=== PATIENT | male | born 1960 | race Caucasian/White ===

== ENCOUNTER 2018-02-28 09:36 | Inpatient (IN) | payer OTHER ==
[2018-02-28] MEDS ORDERED: Iopamidol 370 76% 50 ML VIAL FS ONE (09:41)
[2018-02-28] MEDS ORDERED: ISOVUE-370 76%-LOCM 1 ML ONE (09:41)
[2018-02-28] MEDS ORDERED: Morphine 10 MG/ML VIAL ONE (09:55)
[2018-02-28] MEDS ORDERED: Ondansetron ODT 8 MG TAB ONE (09:56)
[2018-02-28 10:13] LABS: #Eosinphils 0.2 thou/uL (0.0-0.7); #Lymphocytes 1.7 thou/uL (1.20-3.40); #Monocytes 0.7 thou/uL (0.11-0.59); #Neutrophils 7.4 thou/uL (1.40-6.50); %Basophils 0.3 % (0.0-1.0); %Eosinophils 1.6 % (0.0-10.0); %Lymphocytes 16.9 % (21.0-51.0); %Monocytes 7.1 % (0.0-10.0); %Neutrophils 74.1 % (42.0-75.0); Hemoglobin 17.2 g/dL (14.0-18.0); Mean Corpuscular HGB CONC 33.2 g/dL (32.0-36.0); Mean Corpuscular Hemoglobin 29.4 pg (27.0-31.0); Mean Corpuscular Volume 88.5 fL (78.0-98.0); Mean Platelet Volume 7.3 fL (7.4-10.4); Platelet Count 245 thou/uL (130-400); RBC Distribution Width 11.6 % (11.5-14.5); Red Blood Cell (RBC) Count 5.84 mill/uL (4.70-6.10)
[2018-02-28 10:41] LABS: ALT (SGPT) 24 U/L (8-55); AST (SGOT) 23 U/L (5-34); Albumin 4.4 g/dL (3.5-5.0); Alkaline Phosphatase 58 U/L (40-150); Anion Gap 16 mmol/L (10-20); BUN (Urea Nitrogen) 17 mg/dL (8.4-25.7); Bilirubin, Total 0.7 mg/dL (0.2-1.2); Calc. Creatinine Clearance 0 mL/min (70-130); Calcium 9.4 mg/dL (7.8-10.44); Carbon Dioxide 22 mmol/L (22-29); Chloride 102 mmol/L (98-107); Estimated GFR-MDRD 61; Globulin 3.3 g/dL (2.4-3.5); Glucose 184 mg/dL (70-105); Lipase 23 U/L (8-78); Potassium 4.5 mmol/L (3.5-5.1); Protein, Total 7.7 g/dL (6.0-8.3); Sodium 135 mmol/L (136-145)
[2018-02-28] MEDS ORDERED: Metoclopramide HCl 10 MG/2 ML VIAL ONE (10:53)
[2018-02-28] MEDS ORDERED: Lorazepam 2 MG/ML VIAL ONE (11:13)
[2018-02-28 12:14] LABS: CKMB 0.8 ng/mL (0-6.6); Troponin I Less than 0.010 ng/mL (< 0.028)
[2018-02-28] MEDS ORDERED: Piperacillin/Tazobactam 4.5 GM in Sodium Chloride 0.9% 100 ML IVPB SCH (12:15)
[2018-02-28] MEDS ORDERED: Piperacillin/Tazobactam 4.5 GM VIAL ONE (12:27)
--- NOTE | 2018-02-28 12:47 | CT ---
ABDOMEN CT WITH CONTRAST PELVIC CT WITHT CONTRAST: Date: 02/28/18 HISTORY: Right lower quadrant pain. COMPARISON: None. TECHNIQUE: Abdomen and pelvic CT performed with IV contrast. Enteric contrast administered. Coronal reformatted are submitted for interpretation. FINDINGS: ABDOMEN CT: Lung bases are clear. Heart size normal. No pericardial effusion. Descending thoracic aorta and abdom inal aorta have normal caliber. No periaortic fat stranding. Gallbladder surgically absent. Intra and extrahepatic portal vein patent. Liver, spleen, pancreas, and adrenal glands have appropriate attenu ation and enhancement. No gastrohepatic, retrocrural, or periportal lymphadenopathy. No mesenteric ma ss, lymphadenopathy, or free air. There is a small amount of free fluid in the right lower quadrant a nd right paracolic gutter. Symmetric enhancement of the kidneys. Bilaterally, no obstructive uropathy . Limited evaluation of the alimentary canal due to lack of oral contrast. Gastric mucosa, duodenum, and multiple normal caliber small bowel loops are noted. Ileocecal junction is normal. Scattered feca l material in nondistended, nondilated colon. Occasional diverticulum. No diverticulitis. There is a retrocecal appendix with a cephalad orientation. The appendix is dilated and fluid-filled. There is periappendiceal inflammatory change. Appendix measures 1.3 cm. No abscess or perforation. PELVIC CT: No mass, lymphadenopathy, free air, or free fluid. Urinary bladder is unremarkable. No lytic or blastic lesions in the osseous structures. IMPRESSION: Appendicitis. No evidence of perforation or abscess. Results of study discussed with Dr. Morgan on 02/28/18 at 1146 hours. CODE CR. POS: [facility]
[2018-02-28 13:08] LABS: Bilirubin Negative (Negative); Blood, Urine Negative (Negative); Clarity CLEAR (Clear); Glucose, Urine (Dipstick) >=1000 mg/dL (Negative); Leukocyte Negative (Negative); Nitrite Negative (Negative); Protein, Urine (Dipstick) Negative (Neg-Trace); Specific Gravity, Urine 1.042 (1.002-1.036); Urobilinogen 0.2 mg/dL (0.2-1.0)
--- NOTE | 2018-02-28 13:32 | HP ---
DATE OF ADMISSION: 02/28/2018 HISTORY OF PRESENT ILLNESS: This is a 57-year-old man, who [facility] with a 24-hour history of insidious onset periumbilical abdominal pain. Pain has settled in the r ight lower quadrant and persisted since last night. Pain is described as sharp, rated at 9-10/10 and associated with multiple episodes of nausea and 1 bout of nonbilious emesis. The patient reported h aving diarrhea 2 days ago. He denies any fevers or chills. PAST MEDICAL HISTORY: Pertinent for type 2 diabetes mellitus, essential hypertension, and says no al pb. PAST SURGICAL HISTORY: Pertinent for arthroscopic right knee surgery. 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 H dayna has been in the oil acuna now over the last 4 months. He admits occasional intake of ethanol in m oderate amounts. Denies any cigarette smoking or illicit drug abuse. FAMILY HISTORY: Notable for various members of the family with essential hypertension. A younger br other has type 2 diabetes mellitus. Mother has a history of breast cancer. There is no family histo ry of heart disease. PREHOSPITAL MEDICATIONS: Includes propranolol, aspirin, lisinopril, and medications for seasonal all ergies. He does not recall the dosages of these medications. ALLERGIES: BIAXIN. REVIEW OF SYSTEMS: A 10-point review of systems essentially unremarkable except for as stated in pas t medical history and chief complaint. PHYSICAL EXAMINATION: GENERAL: This reveals a 57-year-old normally developed man, who is otherwise coherent and interactiv e and appears stated age. The patient is alert and oriented x3. He appears to be in moderate acute distress secondary to right lower quadrant abdominal pain. VITAL SIGNS: Includes blood pressure 118/64, pulse 96, respiratory rate is 21, temperature is 98.4 d egrees Fahrenheit. Oxygen saturation is 98% on room air. HEENT: Reveals normocephalic and atraumatic. Pupils are equal, round, and reactive to light and acc ommodation. Extraocular muscles are intact bilaterally. The patient has no sclerae icterus present. HEART: Reveals regular rate and rhythm, no murmurs or gallops auscultated. LUNGS: Clear to auscultation bilaterally. Breathing is regular and unlabored. ABDOMEN: Soft with right lower quadrant tenderness at Burney's. He has a positive Rovsing sign. Liver and spleen otherwise nonpalpable below costal margin. EXTREMITIES: Reveals 2+ radial and pedal pulses bilaterally. No ankle edema is present. NEUROLOGIC: Reveals no focal deficits present. PERTINENT RADIOGRAPHIC STUDIES: Include a CT scan of the abdomen and pelvis, which is remarkable for dilated appendix in a retrocecal position with periappendiceal fat stranding. No pneumoperitoneum o r free fluid is noted. LABORATORY FINDINGS: Includes a CBC with 10,000 white blood cells, hemoglobin 17.2, hematocrit is 51 .7, platelet count is 245,000. Metabolic profile: Sodium 135, potassium is 4.5, chloride is 102, bi carbonate is 22, BUN 17, creatinine is 1.23, glucose is 184, total bilirubin 0.7, AST and ALT normal at 23 and 24 respectively. Serum lipase is also normal at 23. IMPRESSION: Acute appendicitis. PLAN: Laparoscopic appendectomy. I have advised the patient of the above findings and plan. I have also informed him of the risks and benefits of the proposed surgery including, but not limited to bl eeding, infection, injury to bowel or surrounding structures. The patient indicates understanding of this information, which I have given him today in the presence of his nurse. I have answered his qu estions. The patient has granted consent for this admission and surgical intervention.
[2018-02-28] MEDS ORDERED: Dexamethasone 20 MG/5 ML VIAL ONE (15:58)
[2018-02-28] MEDS ORDERED: Glycopyrrolate 0.2 MG/ML 5 ML SYRINGE ONE (15:58)
[2018-02-28] MEDS ORDERED: Ketorolac Tromethamine 30 MG/ML VIAL ONE (15:58)
[2018-02-28] MEDS ORDERED: Vecuronium 10 MG VIAL ONE (15:58)
[2018-02-28] MEDS ORDERED: PHENYLEPHRINE-NS 100 MCG/ML 10 ML SYRINGE ONE (15:58)
[2018-02-28] MEDS ORDERED: Succinylcholine Chloride 20 MG/ML 10 ml SYRINGE FS ONE ×2 (15:58→17:54)
[2018-02-28] MEDS ORDERED: Lidocaine 1% PF 5 ML VIAL ONE (15:58)
[2018-02-28] MEDS ORDERED: Ondansetron HCl/PF 4 MG/2 ML Vial ONE (15:58)
[2018-02-28] MEDS ORDERED: PROPOFOL 200 MG/20 ML VIAL ONE (15:58)
[2018-02-28] MEDS ORDERED: Fentanyl 250 MCG/5 ML VIAL ONE (17:42)
[2018-02-28] MEDS ORDERED: Bupivacaine/Epinephrine 0.25% 30 ML VIAL ONE ×2 (17:52→23:04)
[2018-02-28] MEDS ORDERED: Fentanyl 100 MCG/2 ML VIAL ONE ×3 (19:56→21:40)
[2018-02-28] MEDS ORDERED: Meperidine HCl/PF 25 MG/ML VIAL SLOW IVP PRN (20:39)
[2018-02-28] MEDS ORDERED: Promethazine HCl 25 MG/ML VIAL SLOW IVP PRN (20:39)
[2018-02-28] MEDS ORDERED: Promethazine HCl 25 MG/ML VIAL IM PRN ×2 (20:39→23:44)
[2018-02-28] MEDS ORDERED: Ondansetron HCl/PF 4 MG/2 ML Vial IVP PRN ×2 (20:39→23:44)
[2018-02-28] MEDS ORDERED: Piperacillin/Tazobactam 3.375 GM VIAL ONE (22:45)
[2018-02-28] MEDS ORDERED: hydrALAZINE 20 MG/ML VIAL SLOW IVP PRN (23:44)
[2018-02-28] MEDS ORDERED: Dextrose 5% in Water 1,000 ML IV PRN (23:44)
[2018-02-28] MEDS ORDERED: Insulin Regular 300 UNITS/3 ML VIAL SC PRN (23:44)
[2018-02-28] MEDS ORDERED: HYDROcodone/Acetaminophen 10/325 mg Tablet PO PRN (23:44)
[2018-02-28] MEDS ORDERED: Dextrose 50% Abboject 50 ML SYRINGE SLOW IVP PRN (23:44)
[2018-02-28] MEDS ORDERED: Acetaminophen 325 MG TAB PO PRN (23:44)
[2018-03-01] MEDS: Ketorolac Tromethamine 30 MG/ML VIAL IVP SCH ×5 (00:42→23:24)
[2018-03-01] MEDS: Lactated Ringer's 1,000 ML IV SCH ×3 (00:56→20:51)
[2018-03-01 03:12] VITALS: BMI 29.5
[2018-03-01] MEDS: Piperacillin/Tazobactam 3.375 GM in Sodium Chloride 0.9% 100 ML IVPB SCH ×4 (05:55→23:25)
[2018-03-01 06:23] LABS: #Lymphocytes 0.8 thou/uL (1.20-3.40); #Monocytes 1.2 thou/uL (0.11-0.59); #Neutrophils 13.3 thou/uL (1.40-6.50); %Basophils 0.1 % (0.0-1.0); %Lymphocytes 5.2 % (21.0-51.0); %Monocytes 7.6 % (0.0-10.0); %Neutrophils 87.1 % (42.0-75.0); Hemoglobin 14.4 g/dL (14.0-18.0); Mean Corpuscular Volume 87.7 fL (78.0-98.0); Mean Platelet Volume 7.4 fL (7.4-10.4); Platelet Count 209 thou/uL (130-400); RBC Distribution Width 11.6 % (11.5-14.5); Red Blood Cell (RBC) Count 4.99 mill/uL (4.70-6.10); White Blood Cell (WBC) Count 15.3 thou/uL (4.8-10.8)
[2018-03-01 06:27] LABS: Anion Gap 12 mmol/L (10-20); BUN (Urea Nitrogen) 16 mg/dL (8.4-25.7); Calc. Creatinine Clearance 104 mL/min (70-130); Calcium 8.6 mg/dL (7.8-10.44); Carbon Dioxide 23 mmol/L (22-29); Chloride 103 mmol/L (98-107); Estimated GFR-MDRD 65; Glucose 173 mg/dL (70-105); Potassium 4.4 mmol/L (3.5-5.1); Sodium 134 mmol/L (136-145)
--- NOTE | 2018-03-01 07:33 | ADD-HP ---
ADDENDUM Mr. Rojas is a 57-year-old white male. Please see the full history and physical examination of Dr. Antony Washburn. I have reviewed the history and physical examination, the CT scan, and the laboratory studies. I have examined the patient and spoken to him and his . He certainly has findings con sistent with acute appendicitis and I also recommend laparoscopic appendectomy. The patient has deve loped a fever up to 101, which has been treated with intravenous acetaminophen. The patient understa nds that his intraoperative and postoperative course may be changed depending upon findings. With th e fever, there is a concern that there could be some advanced form of appendicitis and [facility]. He understands and agrees to proceed with surgery at this time.
[2018-03-01] MEDS: Famotidine 20 MG TAB PO SCH ×2 (07:55→20:47)
[2018-03-01] MEDS: Enoxaparin Sodium 40 MG/0.4 ML SYRINGE SC SCH (07:56)
[2018-03-01] MEDS: Famotidine/PF 20 mg/2ml Vial SLOW IVP SCH ×2 (08:06→20:54)
[2018-03-01] MEDS ORDERED: Tamsulosin HCl 0.4 MG CAP PO SCH (13:15)
[2018-03-01] MEDS ORDERED: Milk Of Magnesia 30 ML UDCUP PO PRN (18:19)
[2018-03-01] MEDS: Zolpidem Tartrate 5 MG TAB PO PRN (23:25)
[2018-03-01] MEDS: Simethicone Chewable 80 MG TAB PO PRN (23:25)
[2018-03-02 05:38] LABS: #Lymphocytes 1.3 thou/uL (1.20-3.40); #Neutrophils 7.3 thou/uL (1.40-6.50); %Basophils 0.2 % (0.0-1.0); %Eosinophils 0.4 % (0.0-10.0); %Lymphocytes 13.5 % (21.0-51.0); %Monocytes 10.2 % (0.0-10.0); %Neutrophils 75.8 % (42.0-75.0); Hemoglobin 12.4 g/dL (14.0-18.0); Mean Corpuscular HGB CONC 32.4 g/dL (32.0-36.0); Mean Corpuscular Hemoglobin 28.4 pg (27.0-31.0); Mean Corpuscular Volume 87.8 fL (78.0-98.0); Mean Platelet Volume 7.4 fL (7.4-10.4); Platelet Count 165 thou/uL (130-400); RBC Distribution Width 11.6 % (11.5-14.5); Red Blood Cell (RBC) Count 4.34 mill/uL (4.70-6.10); White Blood Cell (WBC) Count 9.7 thou/uL (4.8-10.8)
[2018-03-02] MEDS: Ketorolac Tromethamine 30 MG/ML VIAL IVP SCH ×4 (05:51→23:31)
[2018-03-02] MEDS: Piperacillin/Tazobactam 3.375 GM in Sodium Chloride 0.9% 100 ML IVPB SCH ×4 (05:53→23:37)
[2018-03-02] MEDS: Lactated Ringer's 1,000 ML IV SCH (05:53)
[2018-03-02] MEDS: Simethicone Chewable 80 MG TAB PO PRN ×4 (06:00→20:48)
[2018-03-02] MEDS: Enoxaparin Sodium 40 MG/0.4 ML SYRINGE SC SCH (08:59)
[2018-03-02] MEDS: Famotidine 20 MG TAB PO SCH ×2 (09:00→20:47)
[2018-03-02] MEDS: Tamsulosin HCl 0.4 MG CAP PO SCH (09:00)
[2018-03-02] MEDS ORDERED: Lactated Ringer's 1,000 ML IV SCH (09:19)
[2018-03-02] MEDS ORDERED: Acetaminophen 1,000 MG in Premix Bag 1 BAG IVPB PRN (09:19)
--- NOTE | 2018-03-02 09:49 | PRG ---
DATE OF SERVICE: 03/02/2018 SUBJECTIVE: Mr. Rojas is complaining of moderate amount of soreness at his incisions. He denies na usea. He is ambulatory and walked multiple times yesterday. No nausea. OBJECTIVE: VITAL SIGNS: He is afebrile. Vital signs are stable. GENITOURINARY: He is urinating regularly. ABDOMEN: Soft, minimally distended, but active bowel sounds, appropriately tender. All wounds are d ressed. ANA output is serosanguineous. LABORATORY DATA: White blood cell count is 9, hemoglobin 12, normal differential. Creatinine is 1.1 6. ASSESSMENT: Postop appendectomy. PLAN: Advance to full liquids. Continue Zosyn. If he tolerates full liquids today, we will start o ral pain control tomorrow.
[2018-03-02] MEDS ORDERED: Acetaminophen 500 MG TAB PO PRN (11:08)
--- NOTE | 2018-03-02 16:51 | OP ---
DATE OF OPERATION: 02/28/2018 PREOPERATIVE DIAGNOSIS: Acute appendicitis. POSTOPERATIVE DIAGNOSIS: Acute appendicitis. OPERATION PERFORMED: Laparoscopic appendectomy (this is a very difficult operation that took an exce ss of 3 hours to complete). SURGEON: Fox Guallpa M.D. ANESTHESIA: General endotracheal. INDICATIONS: The patient is a 57-year-old white male. He presented with complaints of abdominal garth n. He was seen in the emergency room and a CT scan revealed findings consistent with acute appendici tis. This appeared to be retrocecal and appeared to ascend on the lateral aspect of the right colon. DESCRIPTION OF OPERATION: Informed consent was obtained. The patient taken to the operating room wh ere general endotracheal anesthesia was obtained with the patient in supine position. Abdomen was pr epped with ChloraPrep and draped in sterile fashion. Local anesthetic was infiltrated and 5-mm infra umbilical incision was created through which a Veress needle was passed in peritoneal cavity and pneu moperitoneum, established using carbon dioxide up to a pressure of 15 mmHg. A 5-mm trocar port was p assed through this same incision. Laparoscopic camera was passed through this port. Under direct vi beryl, I placed 2 additional ports including a 5-mm left lower quadrant port and a 12-mm suprapubic po rt. The patient was noted to have extensive intra-abdominal fat with very thick layer of preperitoneal fa t as well as a very thick subcutaneous fat layer. This made the operation more challenging. Attenti on turned to the right lower quadrant. The patient was noted to have purulent material. This is vis ualized in the right upper quadrant. This purulent material was aspirated and submitted for culture. I began to dissect and could not initially visualize the appendix. The patient had an unusual volu me of adhesions between the small bowel and the right lateral abdominal wall. I incised these adhesi ons in order to mobilize the bowel. I then continued mobilization of the right colon by incising the white line of Toldt and mobilizing the colon medially. Identified an inflammatory focus that appear ed to ascend. As this was being dissected and I felt this was likely the appendix, it seemed to tear free from the cecum. I then continued to dissect it distally as it approached the gallbladder. Sheila ntually, I dissected it completely and removed it. When I inspected externally (it had been removed using a specimen retrieval sac), I could not definitely be certain that this was the appendix that gambino d been removed. I therefore returned my attention to the abdomen. I subsequently spent a prolonged period of time dissecting around the cecum, mobilizing the cecum and the small bowel fully and contin ued the dissection, specifically the fatty tissue around to the cecum (which there was abundant volum e of tissue). All of the indurated fatty tissue was excised to ensure that there was no appendix ass ociated with this. It was all removed from within the abdominal cavity, after clearing all possible residual disease tissue from around the cecum. Unfortunately, I could not be certain that there was not some residual appendix or appendiceal stump. I decided to place a GelPort to allow palpation of this area. An oblique right lower quadrant incision was created and muscle splitting was used to gain access int o the abdominal cavity. Palpation within the abdomen did not reveal any evidence of residual appendi x. I was also difficult to discern where the appendiceal stump was on the cecum. After thoroughly m anually inspecting the right colon, the cecum, and small bowel, decided to resect the redundant segme nt of the cecum to include the suspected appendiceal stump. I fired 3 blue loads of the [place] stap ler across the cecum and removed this excised tissue. The staple lines were all intact and hemostati c. I then irrigated the abdominal cavity with 3 liters of warm saline and all irrigant was aspirated . A #19 round fluted drain was placed within the abdominal cavity and brought out through the left l ower quadrant port site where it was secured with 3-0 nylon suture. All ports and instruments remove d under direct vision. Pneumoperitoneum was carefully evacuated. The fascia at the 12-mm port site was closed with 0 Vicryl sutures and a GraNee needle. The fascia at the right lower quadrant incisio n was closed in 2 layers using running suture of #1 PDS. The wound was copiously irrigated and the S carpa's fascia was closed with interrupted sutures of 3-0 Vicryl. The skin edges approximated with s kin reymundo. Telfa shira were placed within the wound and dry gauze dressing was placed externally. Dermabond was placed over the other port sites. There were no complications. The procedure was gabriel y difficult, but that there was no significant blood loss nor any injury to other structures. Patien t tolerated the procedure well and was taken to the recovery room in stable condition.
[2018-03-02] MEDS: Zolpidem Tartrate 5 MG TAB PO PRN (20:54)
[2018-03-03] MEDS: Famotidine/PF 20 mg/2ml Vial SLOW IVP SCH (00:54)
[2018-03-03 04:24] LABS: #Eosinphils 0.3 thou/uL (0.0-0.7); #Lymphocytes 1.3 thou/uL (1.20-3.40); #Monocytes 0.8 thou/uL (0.11-0.59); #Neutrophils 4.9 thou/uL (1.40-6.50); %Basophils 0.4 % (0.0-1.0); %Eosinophils 4.4 % (0.0-10.0); %Lymphocytes 18.2 % (21.0-51.0); %Monocytes 10.8 % (0.0-10.0); %Neutrophils 66.2 % (42.0-75.0); Hemoglobin 11.7 g/dL (14.0-18.0); Mean Corpuscular HGB CONC 32.5 g/dL (32.0-36.0); Mean Corpuscular Hemoglobin 28.7 pg (27.0-31.0); Mean Corpuscular Volume 88.3 fL (78.0-98.0); Mean Platelet Volume 7.2 fL (7.4-10.4); Platelet Count 177 thou/uL (130-400); RBC Distribution Width 11.4 % (11.5-14.5); Red Blood Cell (RBC) Count 4.09 mill/uL (4.70-6.10); White Blood Cell (WBC) Count 7.3 thou/uL (4.8-10.8)
[2018-03-03] MEDS: Ketorolac Tromethamine 30 MG/ML VIAL IVP SCH ×4 (06:10→23:45)
[2018-03-03] MEDS: Simethicone Chewable 80 MG TAB PO PRN ×4 (06:11→20:24)
[2018-03-03] MEDS: Piperacillin/Tazobactam 3.375 GM in Sodium Chloride 0.9% 100 ML IVPB SCH (06:11)
--- NOTE | 2018-03-03 09:47 | PDOC.GSPN ---
Surgery Progress Note: Subj - Subjective Patient reports: no new complaints, pain is less, tolerating liquids well Surgery Progress Note: Obj - Vital signs Vital signs: Vital Signs - Most Recent Temp Pulse Resp BP Pulse Ox 98.1 F 67 16 129/77 96 03/03/18 04:00 03/03/18 04:00 03/03/18 04:00 03/03/18 04:00 03/03/18 04:00 - Physical Exam General: no distress Cardiovascular: regular rate and rhythm Respiratory: clear to auscultation Abdomen: soft, non tender, appropriately tender Wound: dressing clean,dry,intact (ANA serosang) Surgery Progress Note: Results - Labs Result Diagrams: 03/03/18 03:59 03/01/18 05:40 Lab results: Laboratory Results - last 24 hr 03/03/18 03/03/18 03:59 06:07 WBC 7.3 RBC 4.09 L Hgb 11.7 L Hct 36.1 L MCV 88.3 MCH 28.7 MCHC 32.5 RDW 11.4 L Plt Count 177 MPV 7.2 L Neutrophils % 66.2 Lymphocytes % 18.2 L Monocytes % 10.8 H Eosinophils % 4.4 Basophils % 0.4 Neutrophils # 4.9 Lymphocytes # 1.3 Monocytes # 0.8 H Eosinophils # 0.3 Basophils # 0.0 POC Glucose 98 Surgery Progress Note: A/P - Problem (1) Appendicitis Current Visit: Yes Code(s): K37 - UNSPECIFIED APPENDICITIS Status: Acute - Plan Plan: Doing well -advance to GI soft diet -change to oral abx -likely dc tomorrow
[2018-03-03] MEDS: Enoxaparin Sodium 40 MG/0.4 ML SYRINGE SC SCH (09:50)
[2018-03-03] MEDS: Famotidine 20 MG TAB PO SCH ×2 (09:51→20:26)
[2018-03-03] MEDS: Tamsulosin HCl 0.4 MG CAP PO SCH (09:51)
[2018-03-03] MEDS ORDERED: Acetaminophen/Codeine 30-300mg Tablet PO PRN (09:56)
[2018-03-03] MEDS: Acetaminophen/Codeine 30-300mg Tablet PO PRN ×2 (14:04→20:26)
[2018-03-03] MEDS: metroNIDAZOLE 500 MG TAB PO SCH ×2 (15:11→20:26)
[2018-03-03] MEDS ORDERED: Zolpidem Tartrate 5 MG TAB PO SCH (21:00)
[2018-03-03] MEDS ORDERED: Rosuvastatin 20 MG TAB PO SCH (21:00)
[2018-03-04] MEDS: Acetaminophen/Codeine 30-300mg Tablet PO PRN ×2 (04:24→08:58)
[2018-03-04] MEDS: Enoxaparin Sodium 40 MG/0.4 ML SYRINGE SC SCH (08:36)
[2018-03-04] MEDS: Tamsulosin HCl 0.4 MG CAP PO SCH (08:36)
[2018-03-04] MEDS: Famotidine 20 MG TAB PO SCH (08:36)
[2018-03-04] MEDS: metroNIDAZOLE 500 MG TAB PO SCH (08:36)
[2018-03-04] MEDS ORDERED: Lisinopril 5 MG TAB PO SCH (09:00)
[2018-03-04] MEDS ORDERED: Propranolol 40 MG TAB PO SCH (09:00)
[2018-03-04] MEDS ORDERED: Polyethylene Glycol 3350 17 GM Packet PO SCH (11:00)
[2018-03-04 11:31] VITALS: BP 128/84; TEMP 98
--- NOTE | 2018-03-04 14:06 | DIS ---
DATE OF DICTATION: 03/04/2018 DATE OF ADMISSION: 03/01/2018 DATE OF OPERATION: 03/01/2018 ADMISSION HISTORY: Patient is a 57-year-old diabetic white male, who presented with right lower quad rant abdominal pain and CT scan consistent with acute appendicitis. He is taken to the operating jose luis m for laparoscopic appendectomy. This operation proved to be difficult with what I believe to have b een an appendix that was necrotic at its base and severe pericecal inflammatory change. Extensive di ssection was performed to ensure that appropriate appendix removal was performed. I ended up putting in a hand port in the right lower quadrant to ensure appropriate evaluation and dissection. The cec al stump was removed with a stapling device. A drain was placed. Patient has had a relatively uneventful hospital course. He has been afebrile during his hospitaliza tion. His pulse is in the 70s. Blood pressure today is 123/80. He has tolerated his diet and advan wendy from liquids up to a soft diet. He has had flatus, but no bowel movements. He is urinating well . His chemistry profile was essentially unremarkable and his blood sugars have come under very good control. His CBC from yesterday revealed a white blood cell count of 7.3 and an unremarkable differe ntial. Hemoglobin was 11.7. His drain output has been decreasing and appears to be serosanguineous. He is doing well at this time and is stable for discharge home on oral antibiotics. I would recomm end that he use MiraLax to avoid problems with constipation until he is off of his pain medication. He will be given discharge medications including Goodrich, Levaquin, and Flagyl and he is asked to follo w up with myself in about 9 days for staple removal from his right lower quadrant. I instructed him regarding activity restrictions and dietary advancement. His drain will be removed prior to discharg e.
--- NOTE | 2018-03-05 09:00 | PQF ---
GLENN BANSAL, LESLY Harman MD [id number] [place] [id number] CLINICAL DOCUMENTATION CLARIFICATION FORM: POST DISCHARGE Please exercise your independent, professional judgment in responding to the clarification form. Clinical indicators are provided on the bottom of this form for your review. Thank you. ___ Final Diagnosis on the Pathology report: ___ Progress Notes indicate: Clarification of Pathology report: Please check appropriate box(s): [ x ] Agree w the pathology finding of:__ACUTE APPENDICITIS WITH AREA OF RUPTURE [ ] Other explanation of pathology findings (please specify) [ ] Other diagnosis [ ] Unable to determine For continuity of documentation, please document condition throughout progress notes and discharge summary. Thank You. CLINICAL INDICATORS - SIGNS/ SYMPTOMS / LABS Pathology documents acute appendicitis with area of rupture. - path report 03/01 Laparoscopic appendectomy (this is a very difficult operation that took an excess of 3 hours to complete) - op note 02/28/18 Fever up to 101 = HP 02/28/18 RISK FACTORS Diabetes, HTN - HP 02/28/18 TREATMENTS Lap appendectomy - 02/28/18 (This form is maintained as a part of the permanent medical record) 2014 [employer] All Rights Reserved Kenzie Jesus, CCS, BANANA LOADER, [email or web address]
== END 2018-03-04 12:42 | disposition home or self-care (01) | DRG 340 ==
LOC: ERS 09:36 → SDC/OP 17:25 → SJJU 03-01
PROVIDERS: ADMIT Surgery; ATTEND Surgery
PROC: 0DTJ4ZZ Resection of Appendix, Percutaneous Endoscopic Approach (ICD-10-PCS; principal; 2018-02-28)
DX: K35.2 Acute appendicitis with generalized peritonitis (principal); E11.9 Type 2 diabetes mellitus without complications; I10 Essential (primary) hypertension; Z88.1 Allergy status to other antibiotic agents
CPT/HCPCS: 36415; 36416; 74177; 80048; 80053; 81003; 82553; 83690; 84484; 85025; 87070; 87076; 87205; 88304; 93005; 96361; 96365; 96375; J0131; J1100; J1650; J1885; J2001; J2060; J2270; J2405; J2543; J2550; J2704; J2765; J3010; J7050